=== PATIENT | female | born 1950 | race African-American/Black ===

== ENCOUNTER 2017-10-14 06:04 | Inpatient (IN) | payer MEDICARE, MEDICAID ==
[~2017-10-14] VITALS: Ht 172.7 cm; Wt 64.4 kg
[~2017-10-14 06:04] MED LIST: ATEN50TA80; ENAL-3; GABA300C10; HYDR25TA4; NOR10T; TRAM50TA2
[2017-10-14 07:35] LABS: Hematocrit 35.5 % (36.0-46.0); Hemoglobin 10.6 g/dL (12.2-16.2); Mean Corpuscular Hemoglobin 22.4 pg (28.0-32.0); Mean Corpuscular Hgb Conc. 29.9 g/dL (32.0-36.0); Mean Corpuscular Volume 75.1 fL (80.0-100.0); Platelet Count (auto) 398 10^3/uL (140-450); Red Blood Cells 4.73 10^6/uL (4.0-5.20); Red Cell Distribution Width 18.8 % (11.8-14.3); White Blood Cell 13.2 10^3/uL (4.4-10.8)
[2017-10-14 07:42] LABS: Basophils % (manual) 0 (0.0-2.0); Metamyelocytes % 0; Myelocytes % 0
[2017-10-14 07:43] LABS: Blast Cells 0; Promyelocytes % 0; Reactive Lymphocytes 0
[2017-10-14 07:51] LABS: BUN/Creatinine Ratio 10.8; Bilirubin, Total 0.5 mg/dL (0.2-1.0); Calcium 9.3 mg/dL (8.5-10.1); Total Protein 7.4 g/dL (6.4-8.2)
[2017-10-14] MEDS ORDERED: SODIUM CHLORIDE 0.9% 500 ML IVB ONE (07:53)
[2017-10-14] MEDS ORDERED: SODIUM CHLORIDE 0.9% 1,000 ML IV ONE (07:53)
[2017-10-14 07:56] LABS: Potassium 2.7 mmol/L (3.5-5.1)
[2017-10-14] MEDS ORDERED: cefTRIAXone 1GM/10ml StH20 or NS KIT IVpush IV ONE (08:00)
[2017-10-14] MEDS ORDERED: PROMETHAZINE HCL 25 MG/ML 1ML ONE ×2 (08:00→14:48)
[2017-10-14] MEDS ORDERED: PROMETHAZINE HCL 25 MG/ML 1ML IV PRN ×2 (08:00→15:00)
[2017-10-14] MEDS ORDERED: NALBUPHINE HCL 10 MG/1ml INJECTION ONE (08:00)
[2017-10-14] MEDS ORDERED: SOD CHL 0.9%/ KCL 40MEQ 1,000 ML IV ONE (08:00)
[2017-10-14] MEDS ORDERED: NALBUPHINE HCL 10 MG/1ml INJECTION IV ONE (08:00)
[2017-10-14 08:42] LABS: Band Neutrophils % (manual) 2; Eosinophils % (manual) 1 (0-7); Lymphocytes % (manual) 3 (10.0-50.0); Monocytes % (manual) 3 (0-12)
[2017-10-14] MEDS: POTASSIUM CHL 20MEQ/100ML 100 ML IV SCH ×2 (10:32→12:15)
[2017-10-14 10:34] LABS: INR 1.24 (0.9-1.15); Partial Thromboplastin Time 32.1 sec (22.64-33.71); Prothrombin Time 13.6 sec (9.37-12.3)
[2017-10-14 10:39] LABS: Lactic Acid w/Reflex 2.2 mmol/L (0.4-2.0)
[2017-10-14] MEDS ORDERED: MORPHINE SULFATE 4 MG/ML SYR/VIAL IV PRN (11:15)
[2017-10-14] MEDS ORDERED: FAMOTIDINE (10MG/ML) 2ML VL IV SCH ×2 (11:15→13:00)
[2017-10-14] MEDS ORDERED: PIPERACILLIN-TAZOB 3.375GM 50 ML IV ONE (11:15)
[2017-10-14] MEDS ORDERED: NITROGLYCERIN 0.4 MG SL TAB SL PRN (11:15)
[2017-10-14] MEDS: SOD CHL 0.9%/ KCL 40MEQ 1,000 ML IV SCH ×2 (11:15→19:35)
[2017-10-14 11:42] LABS: Urine Bacteria NONE SEEN /hpf (None Seen); Urine Blood Negative /uL (Negative); Urine Hyaline Cast FEW /lpf (0 - 2); Urine Mucus FEW (None Seen); Urine Specific Gravity 1.028 (1.001-1.035); Urine WBC 4 /hpf (0 - 5)
[2017-10-14] MEDS ORDERED: PIPERACILLIN-TAZOB 3.375GM 50 ML IV SCH (12:00)
[2017-10-14] MEDS ORDERED: ROCURONIUM 10MG/ML 10ML VIAL IV ONE (12:05)
[2017-10-14] MEDS ORDERED: LIDOCAINE HCL 2 %PF INJ 10ML AMP IJ ONE (12:05)
[2017-10-14] MEDS ORDERED: MIDAZOLAM HCL 1MG/1ML-2 ML VIAL ONE (12:05)
[2017-10-14] MEDS ORDERED: SUCCINYLCHOLINE CHLORIDE 20 MG/ML 10ML VIAL IV ONE (12:51)
[2017-10-14] MEDS ORDERED: POVIDONE IODINE 10 % TOPICAL OINT 30GM TOP ONE (12:53)
[2017-10-14] MEDS ORDERED: PROPOFOL 10 MG/ML 20 ML IV ONE (12:56)
[2017-10-14] MEDS ORDERED: fentaNYL CITRATE 100 MCG/2 ML VL ONE ×2 (13:32→14:17)
[2017-10-14] MEDS ORDERED: ONDANSETRON HCL 4 MG/2 ML VIAL IV ONE (14:30)
[2017-10-14] MEDS ORDERED: hydrALAZINE HCL 20 MG/ML VL IV PRN (14:30)
[2017-10-14] MEDS ORDERED: NALOXONE HCL 0.4 MG/ML VIAL IV PRN (14:30)
[2017-10-14] MEDS ORDERED: NEOSTIGMINE 1 MG/ML INJ (10mg/10ML VIAL) ONE (14:32)
[2017-10-14] MEDS ORDERED: GLYCOPYRROLATE 0.2 MG/ML 1ML VIAL ONE ×2 (14:32)
[2017-10-14] MEDS ORDERED: ONDANSETRON HCL 4 MG/2 ML VIAL ONE (14:43)
[2017-10-14] MEDS: PROMETHAZINE HCL 25 MG/ML 1ML IV PRN (14:57)
[2017-10-14] MEDS: MORPHINE SULFATE 4 MG/ML SYR/VIAL IV PRN ×5 (15:07→16:43)
[2017-10-14] MEDS: LORazepam 2MG/ML-1ML VIAL IV PRN (15:27)
[2017-10-14] MEDS ORDERED: PANTOPRAZOLE 40 MG/10 ML VIAL IV ONE (16:30)
[2017-10-14] MEDS ORDERED: LABETALOL HCL 5 MG/ML ML 20ML VIAL IV PRN ×2 (16:30)
[2017-10-14 17:30] VITALS: BP 146/93
[2017-10-14 18:24] VITALS: BP 146/93
[2017-10-14] MEDS: metroNIDAZOLE 500MG/100ML 100 ML IV SCH (18:42)
[2017-10-15] MEDS: LORazepam 2MG/ML-1ML VIAL IV PRN ×2 (00:58→20:48)
[2017-10-15] MEDS: MORPHINE SULFATE 4 MG/ML SYR/VIAL IV PRN ×5 (01:01→20:48)
[2017-10-15] MEDS: PANTOPRAZOLE 40 MG/10 ML VIAL IV SCH ×3 (01:06→22:51)
[2017-10-15] MEDS: metroNIDAZOLE 500MG/100ML 100 ML IV SCH ×5 (01:07→23:28)
[2017-10-15] MEDS: SOD CHL 0.9%/ KCL 40MEQ 1,000 ML IV SCH ×3 (03:55→20:35)
[2017-10-15 05:29] VITALS: BP 158/87
[2017-10-15 05:51] LABS: Eosinophils # (auto) 0 uL; Lymphocytes # (auto) 0.4 uL; Neutrophils # (auto) 10.3 uL
[2017-10-15 05:54] LABS: Basophils # (auto) 0.2 uL; Basophils % (auto) 1.5 % (0.0-2.0); Eosinophils % (auto) 0.1 % (0.0-7.0); Hematocrit 30.4 % (36.0-46.0); Hemoglobin 9.5 g/dL (12.2-16.2); Lymphocytes % (auto) 3.4 % (10.0-50.0); Mean Corpuscular Hemoglobin 23.1 pg (28.0-32.0); Mean Corpuscular Hgb Conc. 31.4 g/dL (32.0-36.0); Mean Corpuscular Volume 73.6 fL (80.0-100.0); Monocytes # (auto) 0.7 uL; Monocytes % (auto) 6.3 % (0.0-12.0); Neutrophils % (auto) 88.7 % (37.0-80.0); Platelet Count (auto) 229 10^3/uL (140-450); Red Blood Cells 4.13 10^6/uL (4.0-5.20); Red Cell Distribution Width 18.6 % (11.8-14.3); White Blood Cell 11.6 10^3/uL (4.4-10.8)
[2017-10-15 06:09] LABS: Albumin 2.6 g/dL (3.4-5.0); BUN/Creatinine Ratio 10.6; Calcium 8.4 mg/dL (8.5-10.1); Potassium 3.7 mmol/L (3.5-5.1)
[2017-10-15 06:12] LABS: Bilirubin, Total 0.5 mg/dL (0.2-1.0); Total Protein 6.1 g/dL (6.4-8.2)
[2017-10-15] MEDS: PIPERACILLIN-TAZOB 3.375GM 50 ML IV SCH ×3 (06:19→14:27)
[2017-10-15 08:01] VITALS: BP 144/86
[2017-10-15] MEDS: MAGNESIUM SULFATE 1GM/100ML 100 ML IV SCH ×2 (08:54→11:56)
[2017-10-15] MEDS: PROMETHAZINE HCL 25 MG/ML 1ML IV PRN (08:57)
[2017-10-15 11:48] VITALS: BP 157/87
[2017-10-15] MEDS: LABETALOL HCL 5 MG/ML ML 20ML VIAL IV PRN (12:45)
[2017-10-15] MEDS ORDERED: IPRATROPIUM BROM 0.5 MG/2.5ML INH SOL NEB PRN (14:00)
[2017-10-15] MEDS ORDERED: ALBUTEROL SULF 2.5 MG/0.5ML(0.5%) NEB SOLN NEB PRN (14:00)
[2017-10-15 16:24] VITALS: BP 146/84
[2017-10-15 20:21] VITALS: BP 146/84
[2017-10-15 21:27] VITALS: BP 120/83
[2017-10-16] MEDS: SOD CHL 0.9%/ KCL 40MEQ 1,000 ML IV SCH (01:37)
[2017-10-16] MEDS: MORPHINE SULFATE 4 MG/ML SYR/VIAL IV PRN ×5 (01:44→21:38)
[2017-10-16] MEDS: metroNIDAZOLE 500MG/100ML 100 ML IV SCH ×4 (05:40→22:56)
[2017-10-16 05:54] VITALS: BP 124/86
[2017-10-16] MEDS: PIPERACILLIN-TAZOB 3.375GM 50 ML IV SCH ×4 (07:16→18:00)
[2017-10-16 07:25] LABS: Eosinophils # (auto) 0.1 uL
[2017-10-16 07:28] LABS: Basophils # (auto) 0 uL; Basophils % (auto) 0.4 % (0.0-2.0); Eosinophils % (auto) 0.7 % (0.0-7.0); Hematocrit 27.5 % (36.0-46.0); Hemoglobin 8.5 g/dL (12.2-16.2); Lymphocytes # (auto) 0.3 uL; Lymphocytes % (auto) 2.3 % (10.0-50.0); Mean Corpuscular Volume 74.2 fL (80.0-100.0); Monocytes # (auto) 0.7 uL; Monocytes % (auto) 6.4 % (0.0-12.0); Neutrophils # (auto) 10.3 uL; Neutrophils % (auto) 90.2 % (37.0-80.0); Platelet Count (auto) 257 10^3/uL (140-450); Red Cell Distribution Width 18.6 % (11.8-14.3); White Blood Cell 11.4 10^3/uL (4.4-10.8)
[2017-10-16 07:37] VITALS: BP 135/77
[2017-10-16 07:38] LABS: Albumin 2.5 g/dL (3.4-5.0); BUN/Creatinine Ratio 14.2; Calcium 8.6 mg/dL (8.5-10.1); Magnesium 2.1 mg/dL (1.6-2.6); Potassium 4.1 mmol/L (3.5-5.1)
[2017-10-16 07:41] LABS: Bilirubin, Total 0.8 mg/dL (0.2-1.0); Total Protein 6.5 g/dL (6.4-8.2)
[2017-10-16] MEDS: PANTOPRAZOLE 40 MG/10 ML VIAL IV SCH ×2 (10:02→21:38)
[2017-10-16] MEDS: PROMETHAZINE HCL 25 MG/ML 1ML IV PRN ×2 (10:03→15:41)
[2017-10-16 12:43] VITALS: BP 139/75
[2017-10-16] MEDS: SOD CHL 0.9%/ KCL 20MEQ 1,000 ML IV SCH ×2 (15:40→21:05)
[2017-10-16 16:11] VITALS: BP 130/77
[2017-10-16 22:00] VITALS: BP 118/57
[2017-10-17] VITALS (11 sets, daily range): BP systolic 129–177; BP diastolic 65–100
[2017-10-17] MEDS: PIPERACILLIN-TAZOB 3.375GM 50 ML IV SCH ×4 (00:36→18:00)
[2017-10-17] MEDS: metroNIDAZOLE 500MG/100ML 100 ML IV SCH ×4 (04:28→23:00)
[2017-10-17] MEDS: SOD CHL 0.9%/ KCL 20MEQ 1,000 ML IV SCH (05:58)
[2017-10-17 07:52] LABS: BUN/Creatinine Ratio 18.1; Bilirubin, Total 0.7 mg/dL (0.2-1.0); Calcium 8.3 mg/dL (8.5-10.1); Potassium 4.2 mmol/L (3.5-5.1); Total Protein 5.6 g/dL (6.4-8.2)
[2017-10-17 08:00] LABS: Basophils # (auto) 0.1 uL; Eosinophils # (auto) 0.1 uL; Hemoglobin 7.2 g/dL (12.2-16.2); Mean Corpuscular Volume 74.3 fL (80.0-100.0); Monocytes # (auto) 0.7 uL; Neutrophils % (auto) 88.2 % (37.0-80.0)
[2017-10-17 08:02] LABS: Basophils % (auto) 0.8 % (0.0-2.0); Eosinophils % (auto) 0.7 % (0.0-7.0); Hematocrit 23.5 % (36.0-46.0); Lymphocytes # (auto) 0.4 uL; Lymphocytes % (auto) 3.6 % (10.0-50.0); Mean Corpuscular Hemoglobin 22.8 pg (28.0-32.0); Mean Corpuscular Hgb Conc. 30.7 g/dL (32.0-36.0); Monocytes % (auto) 6.7 % (0.0-12.0); Neutrophils # (auto) 8.8 uL; Nucleated Red Blood Cells % 0.1 %; Platelet Count (auto) 247 10^3/uL (140-450); Red Blood Cells 3.17 10^6/uL (4.0-5.20); White Blood Cell 9.9 10^3/uL (4.4-10.8)
[2017-10-17] MEDS: MORPHINE SULFATE 4 MG/ML SYR/VIAL IV PRN ×2 (09:15→17:51)
[2017-10-17] MEDS: PANTOPRAZOLE 40 MG/10 ML VIAL IV SCH ×2 (10:41→22:59)
[2017-10-17] MEDS: D5W/SOD CHL 0.45%/KCL 20MEQ 1,000 ML IV SCH ×2 (15:24→22:20)
[2017-10-17] MEDS ORDERED: FUROSEMIDE 20 MG/2 ML VIAL IV ONE (15:30)
[2017-10-17] MEDS ORDERED: ALBUTEROL SULF 2.5 MG/0.5ML(0.5%) NEB SOLN NEB PRN (17:30)
[2017-10-17] MEDS ORDERED: FUROSEMIDE 40 MG/4 ML VIAL IV ONE (17:30)
[2017-10-17] MEDS ORDERED: IPRATROPIUM BROM 0.5 MG/2.5ML INH SOL NEB PRN (17:30)
[2017-10-17] MEDS: LABETALOL HCL 5 MG/ML ML 20ML VIAL IV PRN (22:30)
[2017-10-18] VITALS (8 sets, daily range): BP systolic 146–182; BP diastolic 87–98
[2017-10-18] MEDS: PIPERACILLIN-TAZOB 3.375GM 50 ML IV SCH ×4 (00:16→17:52)
[2017-10-18] MEDS: metroNIDAZOLE 500MG/100ML 100 ML IV SCH ×4 (04:45→22:16)
[2017-10-18] MEDS: D5W/SOD CHL 0.45%/KCL 20MEQ 1,000 ML IV SCH ×2 (05:44→14:59)
[2017-10-18] MEDS: LABETALOL HCL 5 MG/ML ML 20ML VIAL IV PRN (05:47)
[2017-10-18 10:21] LABS: Basophils # (auto) 0.1 uL; Eosinophils # (auto) 0.1 uL; Hemoglobin 9.5 g/dL (12.2-16.2); Lymphocytes # (auto) 0.3 uL; Lymphocytes % (auto) 3.8 % (10.0-50.0); Neutrophils % (auto) 83.9 % (37.0-80.0)
[2017-10-18 10:23] LABS: Basophils % (auto) 1.3 % (0.0-2.0); Eosinophils % (auto) 1.1 % (0.0-7.0); Hematocrit 29.7 % (36.0-46.0); Mean Corpuscular Hemoglobin 24.8 pg (28.0-32.0); Mean Corpuscular Hgb Conc. 32.1 g/dL (32.0-36.0); Mean Corpuscular Volume 77.4 fL (80.0-100.0); Monocytes # (auto) 0.8 uL; Monocytes % (auto) 9.9 % (0.0-12.0); Nucleated Red Blood Cells % 0.1 %; Platelet Count (auto) 240 10^3/uL (140-450); Red Blood Cells 3.84 10^6/uL (4.0-5.20); White Blood Cell 8.3 10^3/uL (4.4-10.8)
[2017-10-18 10:26] LABS: Red Cell Distribution Width 20.3 % (11.8-14.3)
[2017-10-18 10:36] LABS: BUN/Creatinine Ratio 14.9; Potassium 3.4 mmol/L (3.5-5.1)
[2017-10-18] MEDS: PANTOPRAZOLE 40 MG/10 ML VIAL IV SCH ×2 (10:42→22:16)
[2017-10-18] MEDS ORDERED: POTASSIUM CHLORIDE 20 MEQ, LIDOCAINE 1% (LOCAL ANESTH.) 2 ML in SODIUM CHL 0.9% 100 ML IV ONE (11:30)
[2017-10-18] MEDS: MORPHINE SULFATE 4 MG/ML SYR/VIAL IV PRN ×2 (15:02→19:38)
[2017-10-19] MEDS: D5W/SOD CHL 0.45%/KCL 20MEQ 1,000 ML IV SCH ×2 (00:33→07:40)
[2017-10-19] MEDS: PIPERACILLIN-TAZOB 3.375GM 50 ML IV SCH ×4 (00:34→18:52)
[2017-10-19] MEDS: LABETALOL HCL 5 MG/ML ML 20ML VIAL IV PRN ×3 (03:46→10:49)
[2017-10-19] MEDS: metroNIDAZOLE 500MG/100ML 100 ML IV SCH ×4 (04:36→23:12)
[2017-10-19 05:00] VITALS: BP 170/95
[2017-10-19 05:54] LABS: Albumin 2.1 g/dL (3.4-5.0); BUN/Creatinine Ratio 13.8; Calcium 7.7 mg/dL (8.5-10.1); Potassium 3.3 mmol/L (3.5-5.1)
[2017-10-19 05:57] LABS: Bilirubin, Total 0.7 mg/dL (0.2-1.0); Total Protein 5.5 g/dL (6.4-8.2)
[2017-10-19] MEDS ORDERED: IOHEXOL 300 MG/ML 100ML BOTTLE IJ ONE (08:48)
[2017-10-19 09:00] VITALS: BP 189/89
[2017-10-19] MEDS: PANTOPRAZOLE 40 MG/10 ML VIAL IV SCH ×2 (09:45→23:12)
[2017-10-19] MEDS: MORPHINE SULFATE 4 MG/ML SYR/VIAL IV PRN ×3 (09:45→23:13)
[2017-10-19] MEDS ORDERED: POTASSIUM CHL 20MEQ/100ML 100 ML IV ONE (12:15)
[2017-10-19 13:00] VITALS: BP 175/87
[2017-10-19] MEDS: D5W/SOD CHL 0.45%/KCL 40MEQ 1,000 ML IV SCH ×2 (13:35→22:00)
[2017-10-19 17:00] VITALS: BP 152/68
[2017-10-19 22:00] VITALS: BP 155/83
[2017-10-19] MEDS: PROMETHAZINE HCL 25 MG/ML 1ML IV PRN (23:13)
[2017-10-20] MEDS: PIPERACILLIN-TAZOB 3.375GM 50 ML IV SCH ×5 (00:01→22:48)
[2017-10-20] MEDS: LORazepam 2MG/ML-1ML VIAL IV PRN (01:27)
[2017-10-20 05:00] VITALS: BP 141/99
[2017-10-20] MEDS: metroNIDAZOLE 500MG/100ML 100 ML IV SCH ×4 (05:21→22:48)
[2017-10-20 06:55] LABS: Basophils # (auto) 0.1 uL; Hematocrit 31.9 % (36.0-46.0); Lymphocytes # (auto) 0.5 uL; Neutrophils # (auto) 7.5 uL; White Blood Cell 9.2 10^3/uL (4.4-10.8)
[2017-10-20 06:58] LABS: Basophils % (auto) 0.9 % (0.0-2.0); Eosinophils # (auto) 0.2 uL; Eosinophils % (auto) 1.9 % (0.0-7.0); Hemoglobin 10.1 g/dL (12.2-16.2); Lymphocytes % (auto) 5.2 % (10.0-50.0); Mean Corpuscular Hemoglobin 24.6 pg (28.0-32.0); Mean Corpuscular Hgb Conc. 31.8 g/dL (32.0-36.0); Mean Corpuscular Volume 77.3 fL (80.0-100.0); Monocytes # (auto) 0.9 uL; Monocytes % (auto) 9.7 % (0.0-12.0); Neutrophils % (auto) 82.3 % (37.0-80.0); Nucleated Red Blood Cells % 0.5 %; Platelet Count (auto) 258 10^3/uL (140-450); Red Blood Cells 4.13 10^6/uL (4.0-5.20); Red Cell Distribution Width 21.6 % (11.8-14.3)
[2017-10-20 07:04] LABS: Albumin 2.2 g/dL (3.4-5.0); BUN/Creatinine Ratio 10.2; Calcium 7.8 mg/dL (8.5-10.1); Potassium 3.5 mmol/L (3.5-5.1)
[2017-10-20 07:07] LABS: Bilirubin, Total 0.7 mg/dL (0.2-1.0); Total Protein 5.9 g/dL (6.4-8.2)
[2017-10-20] MEDS: D5W/SOD CHL 0.45%/KCL 40MEQ 1,000 ML IV SCH ×2 (08:15→18:15)
[2017-10-20] MEDS: PANTOPRAZOLE 40 MG/10 ML VIAL IV SCH ×2 (10:34→22:07)
[2017-10-20] MEDS: PROMETHAZINE HCL 25 MG/ML 1ML IV PRN ×3 (10:35→22:47)
[2017-10-20] MEDS: MORPHINE SULFATE 4 MG/ML SYR/VIAL IV PRN ×3 (10:36→22:47)
[2017-10-20 12:03] VITALS: BP 157/100
[2017-10-20] MEDS ORDERED: guaiFENesin-DM 100/10mg/5ml SYR PO PRN (12:15)
[2017-10-20] MEDS ORDERED: METOPROLOL TARTRATE 25 MG TAB PO ONE (12:15)
[2017-10-20] MEDS ORDERED: ALBUTEROL SULF 2.5 MG/0.5ML(0.5%) NEB SOLN NEB PRN (12:15)
[2017-10-20 15:55] VITALS: BP 152/86
[2017-10-20 22:00] VITALS: BP 173/102
[2017-10-20] MEDS: METOPROLOL TARTRATE 25 MG TAB PO SCH (22:07)
[2017-10-20 23:00] VITALS: BP 155/92
[2017-10-21] MEDS: D5W/SOD CHL 0.45%/KCL 40MEQ 1,000 ML IV SCH ×2 (05:24→14:30)
[2017-10-21] MEDS: MORPHINE SULFATE 4 MG/ML SYR/VIAL IV PRN ×2 (05:24→09:22)
[2017-10-21] MEDS: metroNIDAZOLE 500MG/100ML 100 ML IV SCH ×2 (05:24→11:43)
[2017-10-21] MEDS: PIPERACILLIN-TAZOB 3.375GM 50 ML IV SCH ×4 (05:24→23:48)
[2017-10-21 05:30] VITALS: BP 152/86
[2017-10-21 05:45] LABS: Basophils # (auto) 0.1 uL; Eosinophils # (auto) 0.2 uL; Hemoglobin 9.8 g/dL (12.2-16.2); Lymphocytes # (auto) 0.7 uL
[2017-10-21 05:47] LABS: Basophils % (auto) 0.9 % (0.0-2.0); Eosinophils % (auto) 2.3 % (0.0-7.0); Hematocrit 30.6 % (36.0-46.0); Mean Corpuscular Hgb Conc. 32.1 g/dL (32.0-36.0); Mean Corpuscular Volume 77.7 fL (80.0-100.0); Monocytes % (auto) 10.5 % (0.0-12.0); Neutrophils # (auto) 7.3 uL; Neutrophils % (auto) 78.3 % (37.0-80.0); Nucleated Red Blood Cells % 0.2 %; Platelet Count (auto) 237 10^3/uL (140-450); Red Blood Cells 3.94 10^6/uL (4.0-5.20); White Blood Cell 9.3 10^3/uL (4.4-10.8)
[2017-10-21 06:11] LABS: BUN/Creatinine Ratio 9.3; Bilirubin, Total 0.7 mg/dL (0.2-1.0); Calcium 7.5 mg/dL (8.5-10.1); Magnesium 1.2 mg/dL (1.6-2.6); Potassium 3.3 mmol/L (3.5-5.1); Total Protein 5.6 g/dL (6.4-8.2)
[2017-10-21] MEDS: LABETALOL HCL 5 MG/ML ML 20ML VIAL IV PRN (06:38)
[2017-10-21 08:00] VITALS: BP 159/105
[2017-10-21] MEDS: PANTOPRAZOLE 40 MG/10 ML VIAL IV SCH (09:21)
[2017-10-21] MEDS: METOPROLOL TARTRATE 25 MG TAB PO SCH ×2 (09:23→21:37)
[2017-10-21 12:00] VITALS: BP 137/73
[2017-10-21] MEDS: PROMETHAZINE HCL 25 MG/ML 1ML IV PRN ×2 (12:45→21:38)
[2017-10-21] MEDS ORDERED: LACTULOSE 20Gm/30ML SOLN PO PRN (14:00)
[2017-10-21] MEDS ORDERED: POTASSIUM CHL 20 Meq TABLET PO ONE (14:00)
[2017-10-21] MEDS ORDERED: LORazepam 2MG/ML-1ML VIAL IV PRN (14:00)
[2017-10-21] MEDS: HYDROcodone-ACET 5/325MG TAB PO PRN ×2 (14:29→18:31)
[2017-10-21] MEDS: MAGNESIUM SULFATE 1GM/100ML 100 ML IV SCH ×2 (14:29→16:58)
[2017-10-21 16:52] VITALS: BP 158/88
[2017-10-21] MEDS: PRO-STAT 64 30ML PO SCH (18:00)
[2017-10-21 20:33] VITALS: BP 158/88
[2017-10-21 21:30] VITALS: BP 149/88
[2017-10-21] MEDS: DOCUSATE SOD 100 MG CAP PO SCH (21:37)
[2017-10-22] VITALS (7 sets, daily range): BP systolic 148–168; BP diastolic 89–104
[2017-10-22] MEDS: HYDROcodone-ACET 5/325MG TAB PO PRN ×5 (00:35→23:04)
[2017-10-22] MEDS: D5W/SOD CHL 0.45%/KCL 40MEQ 1,000 ML IV SCH ×2 (05:42→18:00)
[2017-10-22] MEDS: PIPERACILLIN-TAZOB 3.375GM 50 ML IV SCH (05:42)
[2017-10-22] MEDS: PROMETHAZINE HCL 25 MG/ML 1ML IV PRN ×3 (05:44→23:10)
[2017-10-22] MEDS: LABETALOL HCL 5 MG/ML ML 20ML VIAL IV PRN ×2 (05:45→21:04)
[2017-10-22 06:40] LABS: Basophils # (auto) 0.1 uL; Hemoglobin 9.9 g/dL (12.2-16.2); Lymphocytes # (auto) 0.5 uL; Mean Corpuscular Hemoglobin 24.9 pg (28.0-32.0); Mean Corpuscular Volume 78.7 fL (80.0-100.0); Neutrophils # (auto) 7.1 uL; Platelet Count (auto) 253 10^3/uL (140-450); White Blood Cell 8.6 10^3/uL (4.4-10.8)
[2017-10-22 06:42] LABS: Basophils % (auto) 0.8 % (0.0-2.0); Eosinophils # (auto) 0.1 uL; Eosinophils % (auto) 1.6 % (0.0-7.0); Hematocrit 31.4 % (36.0-46.0); Lymphocytes % (auto) 5.9 % (10.0-50.0); Mean Corpuscular Hgb Conc. 31.6 g/dL (32.0-36.0); Monocytes # (auto) 0.7 uL; Monocytes % (auto) 8.7 % (0.0-12.0); Nucleated Red Blood Cells % 0.1 %; Red Blood Cells 3.98 10^6/uL (4.0-5.20)
[2017-10-22 06:47] LABS: BUN/Creatinine Ratio 9.1; Calcium 7.7 mg/dL (8.5-10.1); Magnesium 1.8 mg/dL (1.6-2.6); Potassium 3.5 mmol/L (3.5-5.1)
[2017-10-22 07:18] LABS: Red Cell Distribution Width 22.4 % (11.8-14.3)
[2017-10-22] MEDS: PRO-STAT 64 30ML PO SCH ×2 (08:00→18:00)
[2017-10-22] MEDS: METOPROLOL TARTRATE 25 MG TAB PO SCH ×2 (09:41→23:05)
[2017-10-22] MEDS: PANTOPRAZOLE 40 MG/10 ML VIAL IV SCH (09:41)
[2017-10-22] MEDS: DOCUSATE SOD 100 MG CAP PO SCH ×2 (09:43→22:00)
[2017-10-22] MEDS ORDERED: POTASSIUM CHL 20 Meq TABLET PO ONE (12:00)
[2017-10-22] MEDS ORDERED: LEVOFLOXACIN 500 MG TAB PO ONE (12:00)
[2017-10-22] MEDS ORDERED: MAGNESIUM SULFATE 1GM/100ML 100 ML IV ONE (12:00)
[2017-10-22] MEDS ORDERED: ENALAPRIL MALEATE 10 MG TAB PO ONE (12:00)
[2017-10-22] MEDS: metroNIDAZOLE 500 MG TAB PO SCH ×2 (15:21→23:04)
[2017-10-22] MEDS: MAGIC MOUTHWASH 55 ML SUSP MT SCH ×2 (17:44→23:05)
[2017-10-23] MEDS: HYDROcodone-ACET 5/325MG TAB PO PRN ×3 (03:30→20:03)
[2017-10-23] MEDS: LABETALOL HCL 5 MG/ML ML 20ML VIAL IV PRN ×2 (05:18→12:46)
[2017-10-23] MEDS: MAGIC MOUTHWASH 55 ML SUSP MT SCH ×4 (05:18→22:09)
[2017-10-23] MEDS: metroNIDAZOLE 500 MG TAB PO SCH ×3 (05:18→22:08)
[2017-10-23 05:30] VITALS: BP 164/103
[2017-10-23 06:47] LABS: Hemoglobin 9.5 g/dL (12.2-16.2)
[2017-10-23 06:50] LABS: Hematocrit 29.5 % (36.0-46.0)
[2017-10-23 07:02] LABS: BUN/Creatinine Ratio 8.2; Calcium 7.7 mg/dL (8.5-10.1); Magnesium 1.4 mg/dL (1.6-2.6); Potassium 3.7 mmol/L (3.5-5.1)
[2017-10-23 07:23] VITALS: BP 158/97
[2017-10-23] MEDS: PRO-STAT 64 30ML PO SCH ×2 (09:08→18:08)
[2017-10-23] MEDS: D5W/SOD CHL 0.45%/KCL 40MEQ 1,000 ML IV SCH ×2 (09:49→23:36)
[2017-10-23] MEDS: PANTOPRAZOLE 40 MG/10 ML VIAL IV SCH (09:49)
[2017-10-23] MEDS: LEVOFLOXACIN 500 MG TAB PO SCH (09:50)
[2017-10-23] MEDS: PROMETHAZINE HCL 25 MG/ML 1ML IV PRN (09:50)
[2017-10-23] MEDS: DOCUSATE SOD 100 MG CAP PO SCH ×2 (09:50→22:08)
[2017-10-23] MEDS: METOPROLOL TARTRATE 25 MG TAB PO SCH ×2 (09:53→22:09)
[2017-10-23] MEDS ORDERED: ENALAPRIL MALEATE 10 MG TAB PO SCH (10:00)
[2017-10-23] MEDS ORDERED: POTASSIUM CHL 20 Meq TABLET PO ONE (10:15)
[2017-10-23] MEDS: MAGNESIUM SULFATE 1GM/100ML 100 ML IV SCH ×2 (12:00→12:17)
[2017-10-23 13:33] VITALS: BP 182/100
[2017-10-23] MEDS ORDERED: MAGNESIUM SULFATE 1GM/100ML 100 ML IV ONE (16:00)
[2017-10-23 16:40] VITALS: BP 180/90
[2017-10-23 22:00] VITALS: BP 151/83
[2017-10-23] MEDS: ENALAPRIL MALEATE 10 MG TAB PO SCH (22:08)
[2017-10-24] MEDS: HYDROcodone-ACET 5/325MG TAB PO PRN ×5 (01:28→22:01)
[2017-10-24 05:00] VITALS: BP 158/93
[2017-10-24] MEDS: metroNIDAZOLE 500 MG TAB PO SCH ×3 (06:00→22:00)
[2017-10-24] MEDS: MAGIC MOUTHWASH 55 ML SUSP MT SCH ×4 (06:00→22:00)
[2017-10-24 06:30] VITALS: BP 150/82
[2017-10-24 06:41] LABS: Basophils # (auto) 0 uL; Basophils % (auto) 0.5 % (0.0-2.0); Eosinophils # (auto) 0.1 uL; Eosinophils % (auto) 1.1 % (0.0-7.0); Hematocrit 28.9 % (36.0-46.0); Hemoglobin 9.2 g/dL (12.2-16.2); Lymphocytes # (auto) 0.5 uL; Mean Corpuscular Hemoglobin 25.1 pg (28.0-32.0); Mean Corpuscular Hgb Conc. 32.1 g/dL (32.0-36.0); Mean Corpuscular Volume 78.3 fL (80.0-100.0); Monocytes # (auto) 0.9 uL; Monocytes % (auto) 11.6 % (0.0-12.0); Neutrophils # (auto) 6.1 uL; Neutrophils % (auto) 79.8 % (37.0-80.0); Nucleated Red Blood Cells % 0.1 %; Platelet Count (auto) 238 10^3/uL (140-450); Red Blood Cells 3.68 10^6/uL (4.0-5.20); Red Cell Distribution Width 24.7 % (11.8-14.3); White Blood Cell 7.6 10^3/uL (4.4-10.8)
[2017-10-24 06:49] LABS: Calcium 7.9 mg/dL (8.5-10.1); Magnesium 1.6 mg/dL (1.6-2.6); Potassium 3.6 mmol/L (3.5-5.1)
[2017-10-24 06:51] LABS: BUN/Creatinine Ratio 5.2
[2017-10-24 07:48] VITALS: BP 167/102
[2017-10-24] MEDS: PRO-STAT 64 30ML PO SCH ×2 (08:00→18:42)
[2017-10-24] MEDS: PANTOPRAZOLE 40 MG TAB PO SCH (09:52)
[2017-10-24] MEDS: ENALAPRIL MALEATE 10 MG TAB PO SCH ×2 (09:52→22:01)
[2017-10-24] MEDS: DOCUSATE SOD 100 MG CAP PO SCH ×2 (09:52→22:00)
[2017-10-24] MEDS: LEVOFLOXACIN 500 MG TAB PO SCH (09:52)
[2017-10-24] MEDS: METOPROLOL TARTRATE 25 MG TAB PO SCH ×2 (09:53→22:02)
[2017-10-24 12:23] VITALS: BP 133/90
[2017-10-24] MEDS: D5W/SOD CHL 0.45%/KCL 40MEQ 1,000 ML IV SCH (13:30)
[2017-10-24 17:19] VITALS: BP 155/104
[2017-10-24] MEDS: LABETALOL HCL 5 MG/ML ML 20ML VIAL IV PRN (17:22)
[2017-10-24 22:00] VITALS: BP 149/74
[2017-10-25] VITALS (7 sets, daily range): BP systolic 131–187; BP diastolic 74–105
[2017-10-25] MEDS: HYDROcodone-ACET 5/325MG TAB PO PRN ×5 (01:57→22:12)
[2017-10-25] MEDS: D5W/SOD CHL 0.45%/KCL 40MEQ 1,000 ML IV SCH ×2 (03:48→18:06)
[2017-10-25] MEDS: MAGIC MOUTHWASH 55 ML SUSP MT SCH ×4 (06:00→22:14)
[2017-10-25] MEDS: metroNIDAZOLE 500 MG TAB PO SCH ×3 (06:14→22:13)
[2017-10-25] MEDS: PRO-STAT 64 30ML PO SCH ×2 (08:24→18:21)
[2017-10-25] MEDS: DOCUSATE SOD 100 MG CAP PO SCH ×2 (10:00→22:00)
[2017-10-25] MEDS: ENALAPRIL MALEATE 10 MG TAB PO SCH ×2 (10:28→22:13)
[2017-10-25] MEDS: PANTOPRAZOLE 40 MG TAB PO SCH (10:29)
[2017-10-25] MEDS: METOPROLOL TARTRATE 25 MG TAB PO SCH ×2 (10:29→22:13)
[2017-10-25] MEDS: LEVOFLOXACIN 500 MG TAB PO SCH (10:29)
[2017-10-25] MEDS: LABETALOL HCL 5 MG/ML ML 20ML VIAL IV PRN (12:12)
[2017-10-25] MEDS: cloNIDine HCL 0.1 MG TAB PO PRN (18:23)
[2017-10-26] MEDS: HYDROcodone-ACET 5/325MG TAB PO PRN ×6 (02:25→22:04)
[2017-10-26 05:00] VITALS: BP 155/89
[2017-10-26] MEDS: MAGIC MOUTHWASH 55 ML SUSP MT SCH ×4 (06:35→22:02)
[2017-10-26] MEDS: metroNIDAZOLE 500 MG TAB PO SCH ×3 (06:35→22:02)
[2017-10-26] MEDS: PRO-STAT 64 30ML PO SCH ×2 (08:00→18:00)
[2017-10-26 09:00] VITALS: BP 147/78
[2017-10-26] MEDS: DOCUSATE SOD 100 MG CAP PO SCH ×2 (10:00→22:02)
[2017-10-26] MEDS: ENALAPRIL MALEATE 10 MG TAB PO SCH ×2 (10:21→22:03)
[2017-10-26] MEDS: LEVOFLOXACIN 500 MG TAB PO SCH (10:21)
[2017-10-26] MEDS: PANTOPRAZOLE 40 MG TAB PO SCH (10:21)
[2017-10-26] MEDS: D5W/SOD CHL 0.45%/KCL 40MEQ 1,000 ML IV SCH ×2 (10:22→22:03)
[2017-10-26] MEDS: METOPROLOL TARTRATE 25 MG TAB PO SCH ×2 (10:22→22:03)
[2017-10-26 12:48] VITALS: BP 153/83
[2017-10-26 17:00] VITALS: BP 127/71
[2017-10-26 22:00] VITALS: BP 163/75
[2017-10-27] MEDS: HYDROcodone-ACET 5/325MG TAB PO PRN ×2 (02:03→05:39)
[2017-10-27 05:00] VITALS: BP 154/65
[2017-10-27] MEDS: MAGIC MOUTHWASH 55 ML SUSP MT SCH ×2 (05:39→12:00)
[2017-10-27] MEDS: metroNIDAZOLE 500 MG TAB PO SCH ×2 (05:39→13:26)
[2017-10-27] MEDS: cloNIDine HCL 0.1 MG TAB PO PRN (06:32)
[2017-10-27] MEDS: PRO-STAT 64 30ML PO SCH (08:00)
[2017-10-27 09:00] VITALS: BP 150/77
[2017-10-27] MEDS: LEVOFLOXACIN 500 MG TAB PO SCH (10:13)
[2017-10-27] MEDS: DOCUSATE SOD 100 MG CAP PO SCH (10:13)
[2017-10-27] MEDS: PANTOPRAZOLE 40 MG TAB PO SCH (10:13)
[2017-10-27] MEDS: ENALAPRIL MALEATE 10 MG TAB PO SCH (10:13)
[2017-10-27] MEDS: METOPROLOL TARTRATE 25 MG TAB PO SCH (10:14)
[2017-10-27 12:15] VITALS: BP 150/77
[2017-10-27] MEDS ORDERED: ONDANSETRON ODT 4 MG TAB PO ONE (12:15)
[2017-10-27] MEDS: D5W/SOD CHL 0.45%/KCL 40MEQ 1,000 ML IV SCH (13:00)
== END 2017-10-27 14:50 | disposition home health service (06) | DRG 853 ==
LOC: ER 06:06 → TELE 06:07 → TELE-WESTW 17:12 → WEST WING 10-18 23:24 → TELE-WESTW 10-23 15:49
PROVIDERS: ADMIT Internal Medicine; ATTEND Family Medicine
PROC: 0DQ70ZZ Repair Stomach, Pylorus, Open Approach (ICD-10-PCS; 2017-10-14)
PROC: 0DB70ZX Excision of Stomach, Pylorus, Open Approach, Diagnostic (ICD-10-PCS; principal; 2017-10-14 12:56)
PROC: 30233N1 Transfusion of Nonautologous Red Blood Cells into Peripheral Vein, Percutaneous Approach (ICD-10-PCS; 2017-10-17)
DX: A41.9 Sepsis, unspecified organism (principal); K25.5 Chronic or unspecified gastric ulcer with perforation; N17.0 Acute kidney failure with tubular necrosis; E44.0 Moderate protein-calorie malnutrition; J96.11 Chronic respiratory failure with hypoxia; K66.8 Other specified disorders of peritoneum; E87.1 Hypo-osmolality and hyponatremia; J44.9 Chronic obstructive pulmonary disease, unspecified; F32.9 Major depressive disorder, single episode, unspecified; F41.9 Anxiety disorder, unspecified; E87.6 Hypokalemia; D64.9 Anemia, unspecified; F17.210 Nicotine dependence, cigarettes, uncomplicated; I10 Essential (primary) hypertension; Z85.3 Personal history of malignant neoplasm of breast; Z98.82 Breast implant status; Z99.81 Dependence on supplemental oxygen; Z68.21 Body mass index [BMI] 21.0-21.9, adult
CPT/HCPCS: 36415; 51702; 71045; 74176; 74247; 76705; 80048; 80053; 81001; 82150; 83605; 83690; 83735; 84132; 84443; 84484; 85007; 85014; 85018; 85025; 85027; 85610; 85730; 86850; 86900; 86901; 86920; 87040; 93005; 94761; 96361; 96374; 96375; C9113; J0330; J2001; J2250; J2405; J2543; J2704; J3480; J3490; Q0162